=== PATIENT | male | born 1995 | race Caucasian/White ===

== ENCOUNTER 2017-06-07 02:36 | Emergency (ER) | payer MEDICAID ==
[~2017-06-07] VITALS: Ht 177.8 cm; Wt 108.9 kg
[2017-06-07 03:22] LABS: Urine RBC None Seen /hpf (0 - 3)
[2017-06-07 03:24] LABS: Basophils # (auto) 0.1 uL; Eosinophils # (auto) 0.4 uL; Eosinophils % (auto) 4.4 % (0.0-7.0); Hematocrit 49.9 % (41.0-53.0); Hemoglobin 17.4 g/dL (13.5-17.5); Lymphocytes # (auto) 2.1 uL; Lymphocytes % (auto) 25.2 % (10.0-50.0); Mean Corpuscular Hemoglobin 29.3 pg (28.0-32.0); Mean Corpuscular Hgb Conc. 34.9 g/dL (32.0-36.0); Mean Platelet Volume 7.9 fL (6.9-10.8); Monocytes # (auto) 0.7 uL; Monocytes % (auto) 8.2 % (0.0-12.0); Neutrophils # (auto) 5.2 uL; Neutrophils % (auto) 61.2 % (37.0-80.0); Nucleated Red Blood Cells % 0.1 %; Platelet Count (auto) 206 10^3/uL (140-450); Red Cell Distribution Width 13.5 % (11.8-14.3); White Blood Cell 8.5 10^3/uL (4.4-10.8)
[2017-06-07 03:45] LABS: Albumin 4.4 g/dL (3.4-5.0); BUN/Creatinine Ratio 14.8; Bilirubin, Total 1.4 mg/dL (0.2-1.0); Calcium 8.9 mg/dL (8.5-10.1); Potassium 3.4 mmol/L (3.5-5.1); Total Protein 8.3 g/dL (6.4-8.2)
[2017-06-07 03:59] LABS: Urine Blood Negative /uL (Negative); Urine Color Yellow (Yellow); Urine Glucose Normal (Normal); Urine Ketone 4+ (Negative); Urine Mucus MODERATE (None Seen); Urine Nitrite Negative (Negative); Urine Squamous Epithelial Cell FEW /hpf (<5)
[2017-06-07 04:03] LABS: Urine Bilirubin Negative (Negative)
[2017-06-07 04:49] LABS: Magnesium 2.4 mg/dL (1.6-2.6)
[2017-06-07 05:08] LABS: Temperature: 21.5 C (20.0-25.0)
[2017-06-07] MEDS ORDERED: POTASSIUM CHL 20 Meq TABLET PO ONE (07:00)
[2017-06-07 07:22] VITALS: BP 149/73
== END 2017-06-07 07:43 | disposition home or self-care (01) ==
LOC: ER 02:39
DX: K52.9 Noninfective gastroenteritis and colitis, unspecified (principal); E87.6 Hypokalemia; K27.9 Peptic ulcer, site unspecified, unspecified as acute or chronic, without hemorrhage or perforation; F12.10 Cannabis abuse, uncomplicated
CPT/HCPCS: 36415; 74176; 80053; 81001; 82150; 83690; 83735; 83880; 84484; 85025; 93005